=== PATIENT | female | born 1965 | race Caucasian/White ===

== ENCOUNTER 2017-06-22 12:00 | Inpatient (IN) | payer MEDICARE ==
[~2017-06-22] VITALS: Ht 165.1 cm; Wt 91.0 kg
[2017-06-22 12:05] VITALS: BP 137/90; PULSE 104; RESP 22; TEMP 99.8; O2SAT 95
[2017-06-22 12:59] LABS: AUTOMATED NEUTROPHIL # 3.1 TH/MM3 (1.8-7.7); BASOPHIL % 0.8 % (0.0-2.0); EOSINOPHIL % 0.8 % (0.0-4.0); HEMATOCRIT 44.3 % (35.0-46.0); HEMOGLOBIN 15.1 GM/DL (11.6-15.3); LYMPH % 24.4 % (9.0-44.0); LYMPHOCYTE # 1.2 TH/MM3 (1.0-4.8); MEAN CELL VOLUME 91.6 FL (80.0-100.0); MEAN CORPUSCULAR HEMOGLOBIN 31.3 PG (27.0-34.0); MEAN CORPUSCULAR HGB CONC 34.2 % (32.0-36.0); MEAN PLATELET VOLUME 8.4 FL (7.0-11.0); MONO % 7.8 % (0.0-8.0); MONOCYTE # 0.4 TH/MM3 (0-0.9); NEUT % 66.2 % (16.0-70.0); PLATELET COUNT 260 TH/MM3 (150-450); RED BLOOD COUNT 4.84 MIL/MM3 (4.00-5.30); WHITE BLOOD COUNT 4.7 TH/MM3 (4.0-11.0)
[2017-06-22 13:09] LABS: BILIRUBIN, URINE NEG (NEG); BLOOD, URINE NEG (NEG); GLUCOSE,URINE NEG (NEG); KETONE, URINE NEG (NEG); NITRITE,URINE NEG (NEG); SQUAMOUS EPITHELIAL CELL URINE <1 /hpf (0-5); URINE COLOR LIGHT-YELLOW (YELLW/STRAW); URINE LEUKOCYTE ESTERASE NEG (NEG)
[2017-06-22 13:29] LABS: ALBUMIN 4.3 GM/DL (3.4-5.0); AST (GOT) 28 U/L (15-37); BICARBONATE 30.4 MEQ/L (21.0-32.0); BLOOD UREA NITROGEN 13 MG/DL (7-18); CALCIUM 9.6 MG/DL (8.5-10.1); CHLORIDE 104 MEQ/L (98-107); CREATININE 1.03 MG/DL (0.50-1.00); GLOMERULAR FILTRATION RATE 56 ML/MIN (>89); GLUCOSE,RANDOM 108 MG/DL (74-106); SODIUM (NA) 142 MEQ/L (136-145)
[2017-06-22 13:32] LABS: ALKALINE PHOSPHATASE 95 U/L (45-117); ALT (GPT) 38 U/L (10-53); TOTAL BILIRUBIN ADULT 0.3 MG/DL (0.2-1.0); TOTAL PROTEIN 8.4 GM/DL (6.4-8.2)
--- NOTE | 2017-06-22 14:23 | PD ---
HPI Chief Complaint: Depression Time Seen by Provider: 13:19 Travel History International Travel<30 days: No Contact w/Intl Traveler<30days: No Traveled to known affect area: No History of Present Illness HPI 51-year-old female presents voluntarily for psychological evaluation 4 increased feelings of depression and anxiety. She is on Cymbalta, Valium, Remeron, Ambien, Delphin. She moved down here in December from [place] and saw a neuropsychology director for her depression and anxiety. She reports getting overwhelmed with her current medical conditions. She reports history of ovarian cancer, and the surgery caused her to have lymphedema in her legs which are getting worse. She recently spent $5000 on a pump for her legs to help decrease the fluid for her lymphedema. She was also recently diagnosed with Sjogren's and lupus. After moving down here she has not been able to see a psychiatrist and she is overwhelmed with her medical conditions and not having resources. She denies suicidal or homicidal ideations. Denies illicit drug use. Denies tobacco use. Reports occasional alcohol use. Denies auditory or visual hallucinations. Has been compliant with her medications. Symptoms are aggravated by medical conditions and not having resources. No known relieving factors. Onset unknown. Duration chronic. Symptoms are moderate to severe in severity. Primary care provider is Dr. Rao. Allergies to Advil and Dilaudid. History of depression, anxiety, mood disorder, thyroid tumor, hypertension, metabolic syndrome, nonalcoholic fatty liver, hypercholesterolemia , lymphedema, osteoporosis. Has no other medical complaints. Denies chest pain , shortness of breath, abdominal pain, nausea, vomiting, change in urine or stool. No other modifying factors or associated signs and symptoms. PFSH Past Medical History Arthritis: Yes Bipolar Disorder: Yes Anxiety: Yes Depression: Yes Cancer: Yes Hypertension: Yes Medical other: Yes (lupus) ?: Not Past Surgical History Gynecologic Surgery: Yes (ovarian cancer 2015) Hysterectomy: Yes Tonsillectomy: Yes Social History Alcohol Use: Yes (occasional) Tobacco Use: No Substance Use: No Review of Systems Except as stated in HPI: all other systems reviewed are Neg Physical Exam Narrative GENERAL: Well-nourished, well-developed female patient, in no acute distress; crying and tearful SKIN: Warm and dry. HEAD: Atraumatic. Normocephalic. EYES: Pupils equal and round. ENT: Mucosa pink and moist. NECK: Supple. Trachea midline. CARDIOVASCULAR: Regular rate and rhythm. No murmur appreciated. RESPIRATORY: No accessory muscle use. Clear to auscultation. Breath sounds equal bilaterally. GASTROINTESTINAL: Abdomen soft, non-tender, nondistended. Hepatic and splenic margins not palpable. Bowel sounds are active 4 quadrants. MUSCULOSKELETAL: No obvious deformities. No clubbing. No cyanosis. No edema. NEUROLOGICAL: Awake and alert. Oriented 3. No obvious cranial nerve deficits. Motor grossly within normal limits. Normal speech. Moves all extremities. 5/5 strength to all extremities. PSYCHIATRIC: No delusional thought processes. No hallucinations. Data Data Last Documented VS Vital Signs Date Time Temp Pulse Resp B/P (MAP) Pulse Ox O2 Delivery O2 Flow Rate FiO2 06/22/17 12:05 99.8 104 22 137/90 (106) 95 Orders Orders Complete Blood Count With Diff (06/22/17 12:08) Comprehensive Metabolic Panel (06/22/17 12:08) Urinalysis - C+S If Indicated (06/22/17 12:08) Psych Screen (06/22/17 12:08) Thyroid Stimulating Hormone (06/22/17 13:20) Drug Screen, Random Urine (06/22/17 13:20) Alcohol (Ethanol) (06/22/17 13:20) Salicylates (Aspirin) (06/22/17 13:20) Tylenol (Acetaminophen) (06/22/17 13:20) Labs Laboratory Tests Test 06/22/17 12:31 White Blood Count 4.7 TH/MM3 Red Blood Count 4.84 MIL/MM3 Hemoglobin 15.1 GM/DL Hematocrit 44.3 % Mean Corpuscular Volume 91.6 FL Mean Corpuscular Hemoglobin 31.3 PG Mean Corpuscular Hemoglobin Concent 34.2 % Red Cell Distribution Width 13.0 % Platelet Count 260 TH/MM3 Mean Platelet Volume 8.4 FL Neutrophils (%) (Auto) 66.2 % Lymphocytes (%) (Auto) 24.4 % Monocytes (%) (Auto) 7.8 % Eosinophils (%) (Auto) 0.8 % Basophils (%) (Auto) 0.8 % Neutrophils # (Auto) 3.1 TH/MM3 Lymphocytes # (Auto) 1.2 TH/MM3 Monocytes # (Auto) 0.4 TH/MM3 Eosinophils # (Auto) 0.0 TH/MM3 Basophils # (Auto) 0.0 TH/MM3 CBC Comment DIFF FINAL Differential Comment Urine Color LIGHT-YELLOW Urine Turbidity CLEAR Urine pH 6.0 Urine Specific [place] 1.007 Urine Protein NEG mg/dL Urine Glucose (UA) NEG mg/dL Urine Ketones NEG mg/dL Urine Occult Blood NEG Urine Nitrite NEG Urine Bilirubin NEG Urine Urobilinogen LESS THAN 2.0 MG/DL Urine Leukocyte Esterase NEG Urine WBC LESS THAN 1 /hpf Urine Squamous Epithelial Cells <1 /hpf Microscopic Urinalysis Comment CULT NOT INDICATED Blood Urea Nitrogen 13 MG/DL Creatinine 1.03 MG/DL Random Glucose 108 MG/DL Total Protein 8.4 GM/DL Albumin 4.3 GM/DL Calcium Level 9.6 MG/DL Alkaline Phosphatase 95 U/L Aspartate Amino Transf (AST/SGOT) 28 U/L Alanine Aminotransferase (ALT/SGPT) 38 U/L Total Bilirubin 0.3 MG/DL Sodium Level 142 MEQ/L Potassium Level 4.0 MEQ/L Chloride Level 104 MEQ/L Carbon Dioxide Level 30.4 MEQ/L Anion Gap 8 MEQ/L Estimat Glomerular Filtration Rate 56 ML/MIN MDM Medical Decision Making Medical Screen Exam Complete: Yes Emergency Medical Condition: Yes Medical Record Reviewed: Yes Differential Diagnosis Depression, anxiety, encounter for psychological evaluation Narrative Course Patient presents voluntarily. Physical examination and vital signs are essentially unremarkable. Patient has no medical complaints to report. Psych screen has been ordered. If the laboratory results are unremarkable, the patient will be medically cleared for psychiatric evaluation and disposition. Diagnosis Primary Impression: Depression Qualified Codes: F32.9 - Major depressive disorder, single episode, unspecified Additional Impressions: Anxiety Encounter for psychological evaluation Referrals: [facility] (Out patient) [facility] Primary Care [facility] Primary Care Physician Condition: Stable Cara Waller June 22, 2017 14:23
[2017-06-22 16:55] LABS: ACETAMINOPHEN LESS THAN 2.0 MCG/ML (10.0-30.0)
--- NOTE | 2017-06-22 18:31 | PD ---
History of Present Illness Chief Complaint: Depression Time Seen by Provider: 18:00 Travel History International Travel<30 Days: No Contact w/Intl Traveler<30days: No Known affected area: No Legal Status Legal Status: Voluntary History of Present Illness: This is a 51-year-old single, female who reports voluntarily to this facility stating that her depression and anxiety have progressively been getting worse. Patient is unknown to this facility. Reviewed electronic medical record, labs, and discussed case with staff. Her nurse practitioner in the emergency department describes patient as being extremely somatic. Patient was interviewed in her room and the main ED. She was found awake, alert, and oriented 4 sitting on her bed. Patient's mood is sad and her affect is labile. There is no indication of internal stimulation or thought blocking. She denies SI, HI, auditory or visual hallucinations. I can elicit no delusional material. Patient reports that she recently moved here from [place]. She states that she has been inpatient on multiple occasions in [place] for "mood disorder, depression, anxiety, and bipolar type II". She states that her last inpatient admission in [place] was January 2015. Throughout the interview patient remains tearful and states that although she denies suicidal ideation at this moment she "wants to get help before I becomes suicidal". She does deny any past attempts. PFSH Past Medical History Arthritis: Yes Bipolar Disorder: Yes Anxiety: Yes Depression: Yes Cancer: Yes Hypertension: Yes Medical other: Yes (lupus) ?: Not Past Surgical History Gynecologic Surgery: Yes (ovarian cancer 2015) Hysterectomy: Yes Tonsillectomy: Yes Psychiatric History Psychiatric History Reports multiple inpatient admissions in [place]. Reports diagnoses of mood disorder, depression, anxiety, and bipolar type II at various times in her life. Social History States that she lives alone. She does have a sister who lives in the area. She collects Social Security disability for mental illness. She denies smoking and illicit drug use, and reports that she drinks alcohol socially. Hx Alcohol Use: Yes (occasional) Hx Tobacco Use: No Hx Substance Use: No Hx of Substance Use Treatment: No Mental Status Examination Appearance: Appropriate Consciousness: Alert Orientation: x4 Motor Activity: Normal gait Speech: Rapid Language: Adequate Fund of Knowledge: Adequate Attention and Concentration: Adequate Memory: Unremarkable Mood: Sad (Tearful) Affect: Sad (Tearful) Thought Process & Associations: Intact Thought Content: Appropriate Hallucination Type: None Delusion Type: None Suicidal Ideation: No Suicidal Plan: No Suicidal Intention: No Homicidal Ideation: No Homicidal Plan: No Homicidal Intention: No Insight: Poor Judgment: Impulsive MDM Medical Decision Making Medical Record Reviewed: Yes Assessment/Plan This is a 51-year-old, single, female who presents voluntarily to this facility for reported depression and anxiety. Upon examination today patient was found awake, alert, and oriented 4. Her speech is rapid, clear, organized, and logical. Her mood is sad and her affect is sad. She remains tearful throughout the interview. She denies suicidal ideation, homicidal ideation, auditory or visual hallucinations. I can elicit no delusional material at this time. There is no apparent internal stimulation or thought blocking. However, patient remains extremely tearful throughout the interview and states that she, "wanted to get help before I became suicidal". So out of an over abundance of caution I will admit this patient to the 2600 unit for further evaluation and medication adjustment as deemed necessary. I will obtain consents and order her maintenance psychotropic medications. Request HC Surrog/Guard Advoc?: No Orders Orders Complete Blood Count With Diff (06/22/17 12:08) Comprehensive Metabolic Panel (06/22/17 12:08) Urinalysis - C+S If Indicated (06/22/17 12:08) Psych Screen (06/22/17 12:08) Thyroid Stimulating Hormone (06/22/17 13:20) Drug Screen, Random Urine (06/22/17 13:20) Alcohol (Ethanol) (06/22/17 13:20) Salicylates (Aspirin) (06/22/17 13:20) Tylenol (Acetaminophen) (06/22/17 13:20) Diet Regular Basic (06/22/17 Dinner) Results Vital Signs Date Time Temp Pulse Resp B/P (MAP) Pulse Ox O2 Delivery O2 Flow Rate FiO2 06/22/17 12:05 99.8 104 22 137/90 (106) 95 Laboratory Tests Test 06/22/17 12:31 White Blood Count 4.7 Red Blood Count 4.84 Hemoglobin 15.1 Hematocrit 44.3 Mean Corpuscular Volume 91.6 Mean Corpuscular Hemoglobin 31.3 Mean Corpuscular Hemoglobin Concent 34.2 Red Cell Distribution Width 13.0 Platelet Count 260 Mean Platelet Volume 8.4 Neutrophils (%) (Auto) 66.2 Lymphocytes (%) (Auto) 24.4 Monocytes (%) (Auto) 7.8 Eosinophils (%) (Auto) 0.8 Basophils (%) (Auto) 0.8 Neutrophils # (Auto) 3.1 Lymphocytes # (Auto) 1.2 Monocytes # (Auto) 0.4 Eosinophils # (Auto) 0.0 Basophils # (Auto) 0.0 CBC Comment DIFF FINAL Differential Comment Urine Color LIGHT-YELLOW Urine Turbidity CLEAR Urine pH 6.0 Urine Specific [place] 1.007 Urine Protein NEG Urine Glucose (UA) NEG Urine Ketones NEG Urine Occult Blood NEG Urine Nitrite NEG Urine Bilirubin NEG Urine Urobilinogen LESS THAN 2.0 Urine Leukocyte Esterase NEG Urine WBC LESS THAN 1 Urine Squamous Epithelial Cells <1 Microscopic Urinalysis Comment CULT NOT INDICATED Blood Urea Nitrogen 13 Creatinine 1.03 Random Glucose 108 Total Protein 8.4 Albumin 4.3 Calcium Level 9.6 Alkaline Phosphatase 95 Aspartate Amino Transf (AST/SGOT) 28 Alanine Aminotransferase (ALT/SGPT) 38 Total Bilirubin 0.3 Sodium Level 142 Potassium Level 4.0 Chloride Level 104 Carbon Dioxide Level 30.4 Anion Gap 8 Estimat Glomerular Filtration Rate 56 Thyroid Stimulating Hormone 3rd Gen 1.640 Salicylates Level LESS THAN 1.7 Urine Opiates Screen NEG Acetaminophen Level LESS THAN 2.0 Urine Barbiturates Screen NEG Urine Amphetamines Screen NEG Urine Benzodiazepines Screen POS Urine Cocaine Screen NEG Urine Cannabinoids Screen NEG Ethyl Alcohol Level LESS THAN 3 Diagnosis Primary Impression: Depression Additional Impression: Anxiety Admitting Information Admitting Physician Requests: Admit Referrals: [facility] (Out patient) [facility] Primary Care [facility] Primary Care Physician Condition: Stable Problem Qualifiers Primary Impression: Depression Qualified Codes: F32.9 - Major depressive disorder, single episode, unspecified Risa Lane June 22, 2017 18:31
[2017-06-22] MEDS ORDERED: LORazepam 2 MG/ML VIAL IM PRN ×2 (19:00)
[2017-06-22] MEDS ORDERED: ACETAMINOPHEN 325 MG TAB PO PRN (19:00)
[2017-06-22] MEDS ORDERED: LORazepam 1 MG TAB PO PRN (19:00)
[2017-06-22] MEDS ORDERED: LORazepam 0.5 MG TAB PO PRN (19:00)
[2017-06-22] MEDS ORDERED: MAGNESIUM HYDROXIDE SUSP 30 ML CUP PO PRN (19:00)
[2017-06-22] MEDS ORDERED: ALUMINUM/MAGNESIUM/SIMETH 30 ML CUP PO PRN (19:00)
[2017-06-22] MEDS ORDERED: FAMO1TAB37 PO (19:29)
[2017-06-22] MEDS ORDERED: ZOLP10TA3 PO (19:29)
[2017-06-22] MEDS ORDERED: REST0.05 EACH EYE (19:29)
[2017-06-22] MEDS ORDERED: DIAZ5TAB PO (19:29)
== END 2017-06-22 20:24 | disposition home or self-care (01) | DRG 881 ==
LOC: NEPD 12:00 → NEDA 18:59
PROVIDERS: ADMIT Psychiatry & Neurology Psychiatry; ATTEND Psychiatry & Neurology Psychiatry
DX: F32.9 Major depressive disorder, single episode, unspecified (principal); K76.0 Fatty (change of) liver, not elsewhere classified; M35.00 Sjogren syndrome, unspecified; I10 Essential (primary) hypertension; F41.9 Anxiety disorder, unspecified; E78.00 Pure hypercholesterolemia, unspecified; M19.90 Unspecified osteoarthritis, unspecified site
CPT/HCPCS: 80053; 80307; 81001; 84443; 85025